=== PATIENT | male | born 1985 | race Caucasian/White ===

== ENCOUNTER 2019-10-16 18:16 | Emergency (ER) | payer OTHER ==
--- NOTE | 2019-10-16 19:52 | EDM.PDOC ---
ED HPI GENERAL MEDICAL PROBLEM - General Chief Complaint: Gastrointestinal Problem Stated Complaint: DIARRHEA 4 WEEKS Time Seen by Provider: 10/16/19 19:14 Source of Information: Reports: Patient, Family () History Limitations: Reports: No Limitations - History of Present Illness INITIAL COMMENTS - FREE TEXT/NARRATIVE: Mr. Hansen is a very pleasant 33-year-old man with a past medical history significant for untreated dyslipidemia, who states that he has been experiencing 4 weeks of watery, non-bloody diarrhea, 4 to 5 episodes per day. He denies having abdominal pain, nausea, or vomiting. No recent fever, although he states that he feels chilled. He states that he feels lightheaded when he stands up, or even if he is just sitting upright. He states that he has lost 20 pounds, dropping from 205 pounds to 185 pounds over the past 4 to 5 weeks, unintentionally. He has been taking probiotics and Kaopectate, without relief. He has not tried loperamide. He states that he was seen at the walk-in clinic this past 10/14/2019, and that a C. difficile test was negative. Stool cultures are still pending. Here in the ED, the patient is found to be hemodynamically stable, afebrile. The [place] at the [place]. He has an appointment to be seen on 11/01/2019. He received an influenza vaccine this season. - Related Data Allergies Allergy/AdvReac Type Severity Reaction Status Date / Time cephalexin [From Keflex] Allergy Cannot Verified 07/22/19 12:33 Remember codeine Allergy Cannot Verified 07/22/19 12:33 Remember Penicillins Allergy Other Verified 07/22/19 12:33 Home Meds: Home Meds Baclofen 10 mg PO TID PRN 07/22/19 [History] Ibuprofen 800 mg PO TID PRN #15 tablet 07/22/19 [Rx] Vitamin D2. 07/22/19 [History] Vitamin D3. 07/22/19 [History] atorvaSTATin Calcium [Atorvastatin Calcium] 10 mg PO DAILY 07/22/19 [History] Past Medical History Cardiovascular History: Reports: High Cholesterol (untreated) - Past Surgical History HEENT Surgical History: Reports: Oral Surgery (wisdom teeth extraction) GI Surgical History: Reports: Other (See Below) (Hemorrhoidectomy) Social & Family History - Tobacco Use Smoking Status *Q: Current Every Day Smoker Years of Tobacco use: 19 Packs/Tins Daily: 0.5 Packs/Tins Daily Comment: Down from 2 ppd - Alcohol Use Alcohol Use History: Yes Alcohol Use Frequency: Socially - Recreational Drug Use Recreational Drug Use: Yes Drug Use in Last 12 Months: No Recreational Drug Type: Reports: Marijuana/Hashish (last smoked when 20 yrs old) - Living Situation & Occupation Living situation: Reports: , with Spouse, with Family (5 kids) Occupation: Unemployed ED ROS GENERAL - Review of Systems Review Of Systems: Comprehensive ROS is negative, except as noted in HPI. Musculoskeletal: Reports: Back Pain ED EXAM, GI/ABD - Physical Exam Exam: See Below Exam Limited By: No Limitations General Appearance: Alert, WD/WN, No Apparent Distress Eyes: Bilateral: Normal Appearance, EOMI Ears: Normal External Exam, Hearing Grossly Normal Nose: Normal Inspection Throat/Mouth: Normal Inspection, Normal Lips, Normal Voice, No Airway Compromise Head: Atraumatic, Normocephalic Neck: Normal Inspection, Full Range of Motion Respiratory/Chest: No Respiratory Distress, Lungs Clear, Normal Breath Sounds, No Accessory Muscle Use Cardiovascular: Normal Peripheral Pulses, Regular Rate, Rhythm, No Edema, No Gallop, No JVD, No Murmur, No Rub GI/Abdominal Exam: Normal Bowel Sounds, Soft, Non-Tender, No Organomegaly, No Distention, No Abnormal Bruit, No Mass (Male) Exam: Deferred Rectal (Males) Exam: Deferred Back Exam: Normal Inspection, Full Range of Motion, Paraspinal Tenderness ( chronic, according to the patient) Extremities: Normal Inspection, Normal Range of Motion, No Pedal Edema, Normal Capillary Refill Neurological: Alert, Oriented, Normal Cognition, No Motor/Sensory Deficits Psychiatric: Normal Affect Skin Exam: Warm, Dry, Intact, Normal Color, No Rash Course - Vital Signs Last Recorded V/S: Last Vital Signs Temp 36.9 C 10/16/19 18:57 Pulse 87 10/16/19 18:57 Resp 16 10/16/19 18:57 BP 115/80 10/16/19 18:57 Pulse Ox 96 10/16/19 18:57 Orthostatic Blood Pressure [ 129/90 Standing] Orthostatic Blood Pressure [ 118/78 Supine] - Orders/Labs/Meds Labs: Laboratory Tests 10/16/19 10/16/19 Range/Units 19:50 19:50 WBC 13.29 H (4.23-9.07) K/mm3 RBC 5.15 (4.63-6.08) M/mm3 Hgb 15.3 (13.7-17.5) gm/dl Hct 45.4 (40.1-51.0) % MCV 88.2 (79.0-92.2) fl MCH 29.7 (25.7-32.2) pg MCHC 33.7 (32.2-35.5) g/dl RDW Std Deviation 42.8 (35.1-43.9) fL Plt Count 332 (163-337) K/mm3 MPV 10.2 (9.4-12.3) fl Neutrophils % (Manual) 61 H (40-60) % Band Neutrophils % 0 (0-10) % Lymphocytes % (Manual) 28 (20-40) % Atypical Lymphs % 0 % Monocytes % (Manual) 10 (2-10) % Eosinophils % (Manual) 1 (0.8-7.0) % Basophils % (Manual) 0 L (0.2-1.2) Platelet Estimate Adequate RBC Morph Comment Normal Sodium 143 (136-145) mEq/L Potassium 3.7 (3.5-5.1) mEq/L Chloride 104 (98-107) mEq/L Carbon Dioxide 29 (21-32) mEq/L Anion Gap 13.7 (5-15) BUN 8 (7-18) mg/dL Creatinine 1.1 (0.7-1.3) mg/dL Est Cr Clr Drug Dosing TNP Estimated GFR (MDRD) > 60 (>60) mL/min BUN/Creatinine Ratio 7.3 L (14-18) Glucose 95 (74-106) mg/dL Calcium 9.4 (8.5-10.1) mg/dL Magnesium 2.1 (1.8-2.4) mg/dl Total Bilirubin 0.2 (0.2-1.0) mg/dL AST 13 L (15-37) U/L ALT 62 (16-63) U/L Alkaline Phosphatase 91 (46-116) U/L Total Protein 7.9 (6.4-8.2) g/dl Albumin 4.2 (3.4-5.0) g/dl Globulin 3.7 gm/dL Albumin/Globulin Ratio 1.1 (1-2) Meds: Medications Discontinued Medications Generic Name Dose Route Start Last Admin Trade Name Alexandra PRN Reason Stop Dose Admin Loperamide HCl 4 mg 10/16/19 21:07 10/16/19 21:11 Imodium PO 10/16/19 21:08 4 mg ONETIME STA Administration - Re-Assessments/Exams Free Text/Narrative Re-Assessment/Exam: 10/16/19 19:44 The differential of diarrhea is the largest in medicine, and since the ED does not perform diagnostic tests, we are not going to be able to tell the patient today why he has prolonged diarrhea. We can, however, assess whether or not his prolonged diarrhea has resulted in significant fluid or electrolyte shifts. To that end, I have ordered a CBC, CMP, magnesium level, and orthostatics. We will treat accordingly. 10/16/19 20:52 The patient is not orthostatic. The patient's CBC is remarkable for WBC count elevated at 13.29, but with 0% bandemia. The remainder of his CBC is unremarkable. His CMP is unremarkable. His magnesium level is within normal limits at 2.1. 10/16/19 20:59 Test results discussed with the patient (his is no longer present). As above, today's workup is completely normal. He is not orthostatic, there are no electrolyte abnormalities, and his BUN/Cr are normal. No IV fluid treatment is necessary. Before he is discharged, he will be started on loperamide. I will refer the patient to our clinic for evaluation of his chronic diarrhea, however, the patient is not sure if the [place] will pay for that, therefore he will need to check with them first. Departure - Departure Time of Disposition: 21:03 Disposition: Home, Self-Care 01 Condition: Good Clinical Impression: Chronic diarrhea - Discharge Information *PRESCRIPTION DRUG MONITORING PROGRAM REVIEWED*: Not Applicable *COPY OF PRESCRIPTION DRUG MONITORING REPORT IN PATIENT DAYA: Not Applicable Instructions: Diarrhea, Adult, [id number] Referrals: Eduardo Payton MD [Physician] - Forms: ED Department Discharge Additional Instructions: You were seen in the emergency room for 4 weeks of watery diarrhea with a 20 pound weight loss. Workup in the ER included blood work and positional blood pressure checks, all of which were normal. You are not dehydrated. No electrolyte abnormalities were found. No IV fluid was required, however, you have been started on antidiarrheal medicine loperamide (Imodium AD). Loperamide is available [id number], and the generic is just as good as the brand name. Take one tablet of loperamide after each loose bowel movement, to a maximum of 8 tablets (16 mg) within a 24- hour period - remember that you have already received 2 tablets = 4 mg. We recommend that you stay adequately hydrated. Gatorade or Powerade are best. Avoid juice and milk, as these can make diarrhea worse. As explained, the emergency department is not able to determine why you have been experiencing the diarrhea. An outpatient evaluation is needed. We recommend that you follow-up with Dr. Eduardo Gann, or one of the other providers in the clinic, for further evaluation. If any other problems, please do not hesitate to return to the ER. Sepsis Event Note - Evaluation Sepsis Screening Result: No Definite Risk - Focused Exam Date Exam was Performed: 10/20/19 Time Exam was Performed: 18:14
[2019-10-16] MEDS ORDERED: Loperamide 2 MG Cap PO STA (21:07)
== END 2019-10-16 21:15 | disposition home or self-care (01) ==
LOC: JD.ED 18:16
DX: R19.7 Diarrhea, unspecified (principal); E78.00 Pure hypercholesterolemia, unspecified; F17.210 Nicotine dependence, cigarettes, uncomplicated; Z88.5 Allergy status to narcotic agent; Z88.1 Allergy status to other antibiotic agents; Z88.0 Allergy status to penicillin; Z79.899 Other long term (current) drug therapy
CPT/HCPCS: 36415; 80053; 83735; 85007; 85027; 99284; A9270; 99283

== ENCOUNTER 2022-09-02 02:58 | Emergency (ER) | payer BC | END 2022-09-02 04:55 | disposition home or self-care (01) | LOC: JD.ED 02:58 | DX: S20.212A Contusion of left front wall of thorax, initial encounter (principal); E78.00 Pure hypercholesterolemia, unspecified; F17.210 Nicotine dependence, cigarettes, uncomplicated; Z88.1 Allergy status to other antibiotic agents; Z88.0 Allergy status to penicillin; Z88.5 Allergy status to narcotic agent; Z79.899 Other long term (current) drug therapy; W01.198A Fall on same level from slipping, tripping and stumbling with subsequent striking against other object, initial encounter | CPT/HCPCS: 71046; 71046-26; 99283 ==

== ENCOUNTER 2023-02-04 10:06 | Emergency (ER) | payer BC ==
[2023-02-04] MEDS ORDERED: Orphenadrine 100 MG Tab.ER PO ONE (12:28)
[2023-02-04] MEDS ORDERED: Ketorolac 30 MG/ML SDV IM ONE (12:28)
== END 2023-02-04 13:37 | disposition home or self-care (01) ==
LOC: JD.ED 10:06
DX: M62.830 Muscle spasm of back (principal); E78.00 Pure hypercholesterolemia, unspecified; F17.210 Nicotine dependence, cigarettes, uncomplicated; Z79.899 Other long term (current) drug therapy; Z88.1 Allergy status to other antibiotic agents; Z88.5 Allergy status to narcotic agent; Z88.0 Allergy status to penicillin
CPT/HCPCS: 96372; 99283; A9270; J1885